=== PATIENT | male | born 1955 | race Caucasian/White ===

== ENCOUNTER 2024-08-30 10:09 | Day surgery (SDC) | payer MEDICARE ==
[2024-08-27 10:40] VITALS: BMI 28.1
[~2024-08-30 10:09] MED LIST: HYDROmorphone 0.5 MG/0.5 ML SYRINGE IVP PRN; LIDOCAINE 1% (10MG/ML) FOR IV START INTRADERMA PRN; droPERidol 5 MG/2 ML VIAL IVP ONE
[2024-08-30] MEDS: IV FLUID CONTINUATION 1,000 ML IV ONE (10:40)
[2024-08-30] MEDS: DEXAMETHASONE SOD PHOSPHATE 4 MG/ML 1 ML VIAL IV ONE (11:20)
[2024-08-30] MEDS: ONDANSETRON 4 MG/2 ML VIAL IVP ONE (11:20)
[2024-08-30] MEDS: LACTATED RINGERS 1,000 ML IV SCH (11:20)
[2024-08-30 11:23] LABS: Basophils # (A) 0.1 k/uL (0-0.2); Basophils % (A) 1 %; Eosinophils # (A) 0.1 k/uL (0-0.7); Eosinophils % (A) 2 %; HGB 16.6 gm/dL (13.0-17.5); Lymphocytes # (A) 2.4 k/uL (1.0-4.8); Lymphocytes % (A) 33 %; MCH 32.4 pg (25.0-35.0); MCHC 33.9 g/dL (31.0-37.0); MCV 95.7 fL (80.0-100.0); Mean Platelet Volume 8.5; Monocytes # (A) 0.4 k/uL (0-1.0); Monocytes % (A) 6 %; Neutrophils # (A) 4.2 k/uL (1.3-7.7); Neutrophils % (A) 57 %; Platelet Count 203 k/uL (150-450); RBC 5.12 m/uL (4.30-5.90); RDW 11.8 % (11.5-15.5); WBC 7.4 k/uL (3.8-10.6)
--- NOTE | 2024-08-30 11:28 | P.HPIHPCON ---
History of Present Illness H&P Date: 08/30/24 68-year-old male presented to the surgery clinic with complaint of on and off right upper quadrant pain. He is found to have cholelithiasis. Plan is for robotic cholecystectomy. Of note, patient does have previous surgical history of right colectomy. Consent for Procedure: I have explained the operation/procedure to the patient, including the risks, benefits, side effects, alternative therapies (including not receiving the proposed treatment or service), the likelihood of the patient achieving his/her goals, and potential recuperation problems for the procedure/sedation/analgesia, as well as any blood products, if indicated. I also explained to the patient the risks, benefits and side effects of the alternatives, as well as the risks related to not receiving the proposed procedure, care, treatment, or services. - Review of Systems All systems: negative Past Medical History Past Medical History: Cancer, GERD/Reflux, Hypertension Additional Past Medical History / Comment(s): umbilical hernia,gallstones,colon CA 1998-no radiation or chemo History of Any Multi-Drug Resistant Organisms: None Reported Past Surgical History: Appendectomy, Bowel Resection, Tonsillectomy Additional Past Surgical History / Comment(s): colonoscopy Past Anesthesia/Blood Transfusion Reactions: No Reported Reaction Additional Past Anesthesia/Blood Transfusion Reaction / Comment(s): no hx blood transfusion. woke up once during a colonoscopy Smoking Status: Former smoker - Past Family History Mother Family Medical History: No Reported History Father Family Medical History: Cancer Additional Family Medical History / Comment(s): multiple myeloma Medications and Allergies Home Medications Medication Instructions Recorded Confirmed Type Cholecalciferol [Vitamin D3 (25 25 mcg PO DAILY 08/27/24 08/30/24 History Mcg = 1000 Iu)] Losartan Potassium [Cozaar] 100 mg PO QAM 08/27/24 08/30/24 History Mv-Min/Folic/K1/Lycopen/Lutein 1 each PO DAILY 08/27/24 08/30/24 History [Centrum Silver Men Tablet] Omeprazole 20 mg PO QAM 08/27/24 08/30/24 History Vit C/E/Zn/Coppr/Lutein/Zeaxan 1 each PO DAILY 08/27/24 08/30/24 History [Preservision Areds 2 Softgel] clonazePAM [KlonoPIN] 1 mg PO TID PRN 08/27/24 08/30/24 History Allergies Allergy/AdvReac Type Severity Reaction Status Date / Time No Known Allergies Allergy Verified 08/30/24 10:42 Surgical - Exam Osteopathic Statement: *. No significant issues noted on an osteopathic structural exam other than those noted in the History and Physical/Consult. Vital Signs Temp Pulse Resp BP Pulse Ox 97.6 F 79 16 144/60 96 08/30/24 11:05 08/30/24 11:05 08/30/24 11:05 08/30/24 11:05 08/30/24 11:05 - General well developed, well nourished - Eyes normal ocular movement - Respiratory normal expansion - Abdomen Abdomen: soft, non tender - Psychiatric oriented to time, oriented to person, oriented to place Results - Labs 08/30/24 11:06 Assessment and Plan Plan: 68-year-old male with chronic calculus cholecystitis. Plan is for robotic cholecystectomy. Risks, benefits and alternatives were provided.
[2024-08-30] MEDS: HEPARIN SODIUM,PORCINE 5,000 UNIT/ML 1 ML VIAL SQ STA (11:46)
[2024-08-30 11:50] LABS: ALT 24 U/L (4-49); AST 25 U/L (17-59); African American GFR (CKD) 85 (>60 ml/min/1.73 sqM); Albumin 4.6 g/dL (3.5-5.0); Alkaline Phosphatase 71 U/L (38-126); Anion Gap 9 mmol/L; Blood Urea Nitrogen 17 mg/dL (9-20); Calcium 9.8 mg/dL (8.4-10.2); Carbon Dioxide 24 mmol/L (22-30); Chloride 106 mmol/L (98-107); Glucose 92 mg/dL (74-99); Non-African American GFR(CKD) 74 (>60 ml/min/1.73 sqM); Potassium 4.3 mmol/L (3.5-5.1); Sodium 139 mmol/L (137-145); Total Protein 7.2 g/dL (6.3-8.2)
[2024-08-30] MEDS ORDERED: SUCCINYLCHOLINE CHLORIDE 200 MG/10 ML VIAL IV ONE (12:20)
[2024-08-30] MEDS ORDERED: ROCURONIUM 10 MG/ML (5 ML VIAL) IV ONE (12:20)
[2024-08-30] MEDS ORDERED: GLYCOPYRROLATE 0.2 MG/ML 2 ML VIAL ONE (12:20)
[2024-08-30] MEDS ORDERED: LIDOCAINE 1% INJ 10MG/ML (20 ML MDV) ONE (12:20)
[2024-08-30] MEDS ORDERED: INDOCYANINE GREEN 25 MG VIAL IV ONE (12:20)
[2024-08-30] MEDS ORDERED: LIDOCAINE 4% LTA KIT (4 ML) TOPICAL ONE (12:20)
[2024-08-30] MEDS ORDERED: HYDROmorphone (PF) 1 MG/ML ONE (12:20)
[2024-08-30] MEDS ORDERED: NEOSTIGMINE 1 MG/ML 10 ML VIAL ONE (12:20)
[2024-08-30] MEDS ORDERED: PROPOFOL 10 MG/ML 20 ML VIAL IV ONE (12:20)
[2024-08-30] MEDS ORDERED: fentaNYL (PF) 50 MCG/ML 2 ML AMP ONE (12:20)
[2024-08-30] MEDS ORDERED: KETOROLAC 15 MG/ML 1 ML VIAL ONE (12:20)
[2024-08-30] MEDS ORDERED: PHENYLEPHRINE-0.9% NACL SYG 1,000 MCG/10 ML SYRINGE ONE (12:20)
[2024-08-30] MEDS ORDERED: MIDAZOLAM 2 MG/2 ML VIAL ONE (12:20)
[2024-08-30] MEDS: LIDOCAINE 1%-EPI 1:100,000 20 ML VIAL SQ ONE (12:43)
[2024-08-30] MEDS: LACTATED RINGERS 1,000 ML IV ONE (13:23)
--- NOTE | 2024-08-30 13:46 | P.OP ---
Date of Procedure: 08/30/24 Preoperative Diagnosis: Chronic calculus cholecystitis Umbilical hernia Postoperative Diagnosis: Chronic calculus cholecystitis Umbilical hernia Procedure(s) Performed: Robotic cholecystectomy Umbilical hernia repair, 1 x 1 cm Anesthesia: CORBIN Surgeon: Jeff Lewis Pathology: other (Gallbladder and content) Condition: stable Disposition: same day Indications for Procedure: 68-year-old male who has had on and off right sided abdominal pain for multiple months in the right upper quadrant. On workup he has been found to have cholelithiasis. Secondary to this, plan is for robotic cholecystectomy is it appears he has had chronic calculus cholecystitis. Risks, benefits alternatives were provided to the patient. Operative Findings: Distended and thickened gallbladder Description of Procedure: Patient was brought to the operating suite and placed in supine position on the operating table. Sedation was provided by anesthesia and the patient underwent endotracheal intubation. He was then prepped and draped in regular sterile fashion. Incision was made in the left upper quadrant at Singh's point and the abdomen was entered under direct visualization using a 5 mm Visiport. Pneumoperitoneum was achieved. Some adhesions were noted in the right upper quadrant. Additional 8 mm trocar was placed in the supraumbilical incision site where previous small umbilical hernia is noted. 2 additional trocars were placed in the right upper quadrant. Robot was docked and adhesions were taken down. Gallbladder was then grasped and elevated and retracted superiorly and laterally. Dissection was carried along the infundibulum towards the cystic duct. The cystic duct was skeletonized and anatomy was confirmed using ICG. 2 clips were placed proximally 1 was placed distally and the cystic duct was ligated. Similarly the cystic artery was skeletonized with 2 clips placed proximally 1 was placed distally and the cystic artery was ligated. Cautery was then used to dissect the gallbladder off the gallbladder fossa and the gallbladder was placed in an Endo Catch bag. At this point, hemostasis was noted to be maintained. No evidence of bile leakage. Gallbladder was placed in Endo Catch bag and removed from the supraumbilical fascial defect site. At this point, attention was turned towards the umbilical hernia in which the 8 mm trocar was placed through. The defect was closed primarily using 0 Vicryl suture in interrupted format. Pneumoperitoneum was then released and all ports removed from the abdomen. All skin incisions were closed with 4-0 Vicryl subcuticular suture. Sterile dressing was applied. Patient was awakened in the operating suite taken to postanesthesia care unit in stable condition.
[2024-08-30 13:47] VITALS: TEMP 97.4
[2024-08-30 14:44] VITALS: RESP 16
[2024-08-30 15:00] VITALS: BP 147/85; PULSE 85
== END 2024-08-30 15:39 | disposition home or self-care (01) ==
LOC: OR 10:09
PROVIDERS: ATTEND Surgery
DX: K80.10 Calculus of gallbladder with chronic cholecystitis without obstruction (principal); K42.9 Umbilical hernia without obstruction or gangrene; I10 Essential (primary) hypertension; K21.9 Gastro-esophageal reflux disease without esophagitis; F41.9 Anxiety disorder, unspecified; Z79.899 Other long term (current) drug therapy; Z87.891 Personal history of nicotine dependence; Z85.038 Personal history of other malignant neoplasm of large intestine; Z90.49 Acquired absence of other specified parts of digestive tract
CPT/HCPCS: 47562; 49591; S2900; 80053; 85025; 88304